=== PATIENT | male | born 1975 | race Two or more races ===

== ENCOUNTER 2023-05-25 22:41 | Emergency (ER) | payer OTHER ==
[~2023-05-25] VITALS: Ht 165.1 cm; Wt 80.3 kg
[2023-05-25 22:56] VITALS: BP 158/98; TEMP 98.1
[2023-05-25 23:30] VITALS: O2SAT 98
== END 2023-05-25 23:30 ==
LOC: ER 22:44
DX: S00.81XA Abrasion of other part of head, initial encounter (principal); S20.412A Abrasion of left back wall of thorax, initial encounter; S20.411A Abrasion of right back wall of thorax, initial encounter; X58.XXXA Exposure to other specified factors, initial encounter; Y93.89 Activity, other specified; Y92.89 Other specified places as the place of occurrence of the external cause; Y99.8 Other external cause status